=== PATIENT | female | born 1965 | race Caucasian/White ===

== ENCOUNTER 2017-05-29 15:10 | Emergency (ER) | payer OTHER ==
--- NOTE | 2017-05-29 15:13 | EDPHY ---
H & P Time Seen by Provider: 05/29/17 15:13 HPI/ROS: CHIEF COMPLAINT: Presyncope, left ear pain, nausea, vomiting HISTORY OF PRESENT ILLNESS: The patient has had a one-week history of left ear pain, decreased hearing and dizziness. She saw her primary care provider yesterday who prescribed Flonase and oral prednisone. She started those medications today. While at work she developed an episode of acute nausea and vomiting. She also has had multiple bouts of presyncope. She denies any chest pain or shortness of breath. She denies any focal numbness or weakness. The patient does endorse symptoms of mild vertigo exacerbated by movement of her head which precipitates acute nausea. The patient denies any chest pain, cough or congestion. The patient denies fall or trauma. She denies history of neck pain or cervical manipulation. REVIEW OF SYSTEMS: A comprehensive 10 point review of systems is otherwise negative aside from elements mentioned in the history of present illness. Source: Patient Exam Limitations: No limitations - Medical/Surgical History PMH: Past medical history: Diabetes, depression - Family History Significant Family History: No pertinent family hx - Social History Smoking Status: Never smoked - Physical Exam Exam: General Appearance: Alert, no distress Eyes: Pupils equal and round no pallor or injection ENT, Mouth: Mucous membranes moist, left tympanic membrane clear without evidence of effusion, TM is retracted Respiratory: There are no retractions, lungs are clear to auscultation Cardiovascular: Regular rate and rhythm Gastrointestinal: Abdomen is soft and nontender, no masses, bowel sounds normal Neurological: A&O, normal motor function, normal sensory exam, normal cranial nerves, mild horizontal nystagmus with leftward gaze Skin: Warm and dry, no rashes Musculoskeletal: Neck is supple nontender Extremities: symmetrical, full range of motion Constitutional: Initial Vital Signs Temperature (C) 36.7 C 05/29/17 15:20 Heart Rate 100 05/29/17 15:20 Respiratory Rate 18 05/29/17 15:20 Blood Pressure 128/108 H 05/29/17 15:20 O2 Sat (%) 95 05/29/17 15:20 O2 Delivery Mode Room Air Allergies/Adverse Reactions: No Known Allergies Allergy (Unverified 05/29/17 15:23) Home Medications: Medication Instructions Recorded Ativan 05/29/17 Flonase Allergy Relief 05/29/17 Magnesium 05/29/17 Meclizine HCl [Meclizine HCl 25 mg 25 mg PO BID PRN #20 tab 05/29/17 (RX,OTC)] Metformin HCl 05/29/17 Ondansetron Odt [Zofran Odt] 4 mg PO Q4PRN PRN #20 tab 05/29/17 predniSONE 05/29/17 Medical Decision Making - Diagnostics EKG Interpretation: EKG: Complete interpretation has been separately recorded in the [employer] archive. Summary impression: Sinus tachycardia, rate 101, no ST segment elevation or depression. ED Course/Re-evaluation: The patient presents to the ED with presyncope, mild vertigo in the setting of recently diagnosed eustachian tube dysfunction involving her left ear. The patient is noted to be neurologically intact. Her EKG demonstrates no evidence of an obvious arrhythmia. The patient's CBC is within normal limits. Her CO2 is slightly low consistent with mild dehydration. The patient had an IV established. She received a L of normal saline. At this point time, I do feel the patient can continue her medications as prescribed. She will also be given a prescription for meclizine for her dizziness. She is given a prescription for Zofran for her nausea. The patient will be given the contact number of our on-call ENT physician for evaluation of any ongoing symptoms. Differential Diagnosis: Differential diagnosis considered includes labyrinthitis, benign positional vertigo, anemia, metabolic abnormality, arrhythmia - Data Points Laboratory Results: Laboratory Results 05/29/17 15:00 05/29/17 15:00 05/29/17 05/29/17 05/29/17 15:00 15:00 15:00 WBC 7.90 10^3/uL 10^3/uL (3.80-9.50) RBC 5.47 10^6/uL H 10^6/uL (4.18-5.33) Hgb 16.3 g/dL g/dL (12.6-16.3) Hct 46.3 % % (38.0-47.0) MCV 84.6 fL fL (81.5-99.8) MCH 29.8 pg pg (27.9-34.1) MCHC 35.2 g/dL g/dL (32.4-36.7) RDW 11.9 % % (11.5-15.2) Plt Count 245 10^3/uL 10^3/uL (150-400) MPV 10.0 fL fL (8.7-11.7) Neut % (Auto) 87.8 % H % (39.3-74.2) Lymph % (Auto) 10.4 % L % (15.0-45.0) [place] % (Auto) 1.4 % L % (4.5-13.0) Eos % (Auto) 0.0 % L % (0.6-7.6) Baso % (Auto) 0.3 % % (0.3-1.7) Nucleat RBC Rel Count 0.0 % % (0.0-0.2) Absolute Neuts (auto) 6.94 10^3/uL H 10^3/uL (1.70-6.50) Absolute Lymphs (auto) 0.82 10^3/uL L 10^3/uL (1.00-3.00) Absolute Monos (auto) 0.11 10^3/uL L 10^3/uL (0.30-0.80) Absolute Eos (auto) 0.00 10^3/uL L 10^3/uL (0.03-0.40) Absolute Basos (auto) 0.02 10^3/uL 10^3/uL (0.02-0.10) Absolute Nucleated RBC 0.00 10^3/uL 10^3/uL (0-0.01) Immature Gran % 0.1 % % (0.0-1.1) Immature Gran # 0.01 10^3/uL 10^3/uL (0.00-0.10) Sodium 140 mEq/L mEq/L (134-144) Potassium 4.3 mEq/L mEq/L (3.5-5.2) Chloride 105 mEq/L mEq/L (97-110) Carbon Dioxide 18 mEq/l L mEq/l (22-31) Anion Gap 17 mEq/L H mEq/L (8-16) BUN 9 mg/dL mg/dL (7-23) Creatinine 0.8 mg/dL mg/dL (0.6-1.0) Estimated GFR > 60 Glucose 136 mg/dL H mg/dL (70-100) Calcium 10.6 mg/dL H mg/dL (8.5-10.4) Beta HCG, Qual NEGATIVE Medications Given: Discontinued Medications Sodium Chloride (Ns) 1,000 mls @ 0 mls/hr IV EDNOW ONE; Wide Open PRN Reason: Protocol Stop: 05/29/17 15:29 Last Admin: 05/29/17 15:52 Dose: 1,000 mls Departure - Departure Disposition: Home, Routine, Self-Care Clinical Impression: Vertigo, Vasovagal episode Condition: Good Instructions: Vertigo (ED) Additional Instructions: 1. Meclizine as needed for dizziness. 2. Zofran as needed for nausea. 3. Please return to the emergency department for markedly worsening symptoms, numbness, weakness, fever or other concerns. Referrals: Mary Anders PA [[facility]] - As per Instructions Prescriptions: Meclizine HCl [Meclizine HCl 25 mg (RX,OTC)] 25 mg PO BID PRN #20 tab PRN Reason: for dizzyness Ondansetron Odt [Zofran Odt] 4 mg PO Q4PRN PRN #20 tab PRN Reason: For Nausea
[2017-05-29 15:23] VITALS: RESP 18
[2017-05-29] MEDS ORDERED: NS 1,000 ML IV ONE (15:28)
[2017-05-29 15:38] LABS: % IMMATURE GRANULYOCYTES 0.1 % (0.0-1.1); ABSOLUTE IMMATURE GRANULOCYTES 0.01 10^3/uL (0.00-0.10); ADD DIFF? NO; ADD MORPH? NO; ADD SCAN? NO; ATYPICAL LYMPHOCYTE FLAG 0 (0-99); FRAGMENT RBC FLAG 0 (0-99); HEMATOCRIT 46.3 % (38.0-47.0); HEMOGLOBIN 16.3 g/dL (12.6-16.3); LEFT SHIFT FLG 0 (0-99); LIPEMIA HEMOLYSIS FLAG 90 (0-99); MEAN CELL HEMOGLOBIN 29.8 pg (27.9-34.1); MEAN CELL HEMOGLOBIN CONCENTR. 35.2 g/dL (32.4-36.7); MEAN CELL VOLUME 84.6 fL (81.5-99.8); PLATELET CLUMPS FLAG 10 (0-99); PLATELET COUNT 245 10^3/uL (150-400); RED BLOOD CELL COUNT 5.47 10^6/uL (4.18-5.33); RED CELL DISTRIBUTION WIDTH 11.9 % (11.5-15.2)
[2017-05-29 15:41] LABS: ANION GAP 17 mEq/L (8-16); CALCIUM 10.6 mg/dL (8.5-10.4); CARBON DIOXIDE 18 mEq/l (22-31); CHLORIDE 105 mEq/L (97-110); CREATININE 0.8 mg/dL (0.6-1.0); GLOMERULAR FILTRATION RATE > 60; GLUCOSE 136 mg/dL (70-100); POTASSIUM 4.3 mEq/L (3.5-5.2); SODIUM 140 mEq/L (134-144)
--- NOTE | 2017-05-29 15:51 | CPEKG ---
Heart Rate: 101 RR Interval: 594 P-R Interval: 176 QRSD Interval: 84 QT Interval: 364 QTC Interval: 472 P [place]: 40 QRS [place]: -22 T Wave [place]: 38 EKG Severity - OTHERWISE NORMAL ECG - EKG Impression: SINUS TACHYCARDIA EKG Impression: BORDERLINE LEFT AXIS DEVIATION Electronically Signed By: Tray Swann 29-May-2017 18:44:36
[2017-05-29 17:45] VITALS: BP 116/89; PULSE 85; TEMP 98.4; O2SAT 91
== END 2017-05-29 17:44 | disposition home or self-care (01) ==
LOC: EDUNIT#
DX: R55 Syncope and collapse (principal); R42 Dizziness and giddiness; E11.9 Type 2 diabetes mellitus without complications; Z79.84 Long term (current) use of oral hypoglycemic drugs